=== PATIENT | female | born 1935 | race Caucasian/White ===

== ENCOUNTER 2020-06-11 13:54 | Observation (INO) | payer MEDICARE, MEDICAID ==
[~2020-06-11] VITALS: Ht 170.2 cm; Wt 67.2 kg
[~2020-06-11 13:54] MED LIST: ASCORBIC ACID500 MG ORAL; ATIVAN1 MG ORAL; AVAPRO75 MG ORAL; BACTRIM DS TAB1 EAC1 ORAL; BACTRIM-DS1 EA ORAL; CALCIUM500 M3 PO; DIOVAN80 MG ORAL; FERROUS SULFAT325 MG ORAL; LEVOTHYROXINE150 MCG ORAL; MULTIVITAMINS1 EA14 PO; NIFEDICAL XL60 MG ORAL; NIFEDIPINE XL30 M1 ORAL; NORVASC2.5 MG ORAL; SYNTHROID150 MCG ORAL; TYLENOL325 MG ORAL; VITAMIN D250000 UNI1 ORAL
[2020-06-11 14:03] VITALS: BP 145/90
[2020-06-11] MEDS ORDERED: LORazepam 1mg tab ORAL ONE (14:15)
[2020-06-11] MEDS ORDERED: Thiamine HCl 100 MG in D5W 55 ML IVPB ONE (14:15)
[2020-06-11 14:51] LABS: BASOPHILS % (AUTO) 0.7 % (0.0-2.0); EOSINOPHILS % (AUTO) 1.3 % (0.0-3.0); HEMATOCRIT 33.9 % (37.0-47.0); HEMOGLOBIN 11.7 G/DL (12.0-16.0); LYMPHOCYTES % (AUTO) 12.3 % (20.0-45.0); MEAN CORPUSCULAR VOLUME 83 FL (80-99); NEUTROPHILS % (AUTO) 79.7 % (45.0-75.0); PLATELET COUNT 299 K/UL (150-450); RED CELL DISTRIBUTION WIDTH 13.2 % (11.6-14.8); WHITE BLOOD COUNT 6.5 K/UL (4.8-10.8)
--- NOTE | 2020-06-11 15:24 | Emergency Room Report ---
History of Present Illness General Chief Complaint: General Complaint Source: Patient Present Illness HPI Patient is an 84-year-old female brought in by basic ambulance from assisted living. Patient had reportedly been off of her benzodiazepines for 2 days. She states she had run out of medications. She had reportedly been feeling more anxious and having some slight increased confusion. Denies any fever. Had been otherwise at her baseline mental status. Reports having some back pain from prior fracture. Denies any recent head trauma. Allergies: Coded Allergies: BACITRACIN (Verified Allergy, Unknown, 09/13/10) CODEINE (Verified Allergy, Unknown, 09/13/10) GRAMICIDIN D (Verified Allergy, Unknown, 09/13/10) NEOMYCIN (Verified Allergy, Unknown, 09/13/10) POLYMYXIN B (Verified Allergy, Unknown, 09/13/10) Uncoded Allergies: CODEINE PHOSPHATE (Allergy, Unknown, 06/11/20) COVID-19 Screening Contact w/high risk pt: No Experienced COVID-19 symptoms?: No COVID-19 Testing performed CORPORATE QUALITY MANAGER: No Patient History Past Medical History: see triage record Last Menstrual Period: na Reviewed Nursing Documentation: PMH: Agreed; PSxH: Agreed Nursing Documentation-PMH Past Medical History: No History, Except For Hx Cardiac Problems: Yes Hx Hypertension: Yes Hx Pacemaker: No - CHRONIC BACK PAIN Hx Cancer: Yes Hx Gastrointestinal Problems: No Hx Neurological Problems: No Hx Cerebrovascular Accident: Yes - 2009 Review of Systems All Other Systems: negative except mentioned in HPI Physical Exam Vital Signs Date Time Temp Pulse Resp B/P (MAP) Pulse Ox O2 Delivery O2 Flow Rate FiO2 06/11/20 13:53 97.9 100 19 188/98 (128) 97 Room Air Sp02 EP Interpretation: reviewed, normal General Appearance: normal inspection, alert, GCS 15, Chronically Ill Head: atraumatic ENT: normal ENT inspection, hearing grossly normal, normal voice Neck: normal inspection, full range of motion, supple, no bony tend Respiratory: normal inspection, lungs clear, normal breath sounds, no respiratory distress, no retraction, no wheezing Cardiovascular #1: regular rate, rhythm, no edema Gastrointestinal: normal inspection, normal bowel sounds, non tender, soft, no guarding, no hernia Genitourinary: no CVA tenderness Musculoskeletal: normal inspection, back normal, normal range of motion Neurologic: alert, motor strength/tone normal, tipple repairer III-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 Differential diagnosis include was not limited to benzodiazepine withdrawal, urinary tract infection, electrolyte abnormality among others. Because of complexity of patient's case laboratory tests and imaging studies were ordered. Patient was noted to be awake and alert. She does appear to be coherent. Does not appear to have any evidence of focal neurologic deficit. She was given oral Ativan. Patient refused CT imaging.Patient show some evidence of urinary infection. Dr. Burrows was contacted for inpatient management due to primary care physician. Labs Test 06/11/20 14:24 06/11/20 16:00 06/11/20 16:30 White Blood Count 6.5 K/UL (4.8-10.8) Red Blood Count 4.10 M/UL (4.20-5.40) Hemoglobin 11.7 G/DL (12.0-16.0) Hematocrit 33.9 % (37.0-47.0) Mean Corpuscular Volume 83 FL (80-99) Mean Corpuscular Hemoglobin 28.5 PG (27.0-31.0) Mean Corpuscular Hemoglobin Concent 34.5 G/DL (32.0-36.0) Red Cell Distribution Width 13.2 % (11.6-14.8) Platelet Count 299 K/UL (150-450) Mean Platelet Volume 5.5 FL (6.5-10.1) Neutrophils (%) (Auto) 79.7 % (45.0-75.0) Lymphocytes (%) (Auto) 12.3 % (20.0-45.0) Monocytes (%) (Auto) 6.0 % (1.0-10.0) Eosinophils (%) (Auto) 1.3 % (0.0-3.0) Basophils (%) (Auto) 0.7 % (0.0-2.0) Sodium Level 133 MMOL/L (136-145) Potassium Level 3.8 MMOL/L (3.5-5.1) Chloride Level 95 MMOL/L (98-107) Carbon Dioxide Level 24 MMOL/L (21-32) Anion Gap 14 mmol/L (5-15) Blood Urea Nitrogen 15 mg/dL (7-18) Creatinine 0.7 MG/DL (0.55-1.30) Estimat Glomerular Filtration Rate > 60 mL/min (>60) Glucose Level 101 MG/DL (74-106) Calcium Level 9.6 MG/DL (8.5-10.1) Total Bilirubin 0.6 MG/DL (0.2-1.0) Aspartate Amino Transf (AST/SGOT) 25 U/L (15-37) Alanine Aminotransferase (ALT/SGPT) 29 U/L (12-78) Alkaline Phosphatase 137 U/L (46-116) Total Protein 7.6 G/DL (6.4-8.2) Albumin 3.6 G/DL (3.4-5.0) Globulin 4.0 g/dL Albumin/Globulin Ratio 0.9 (1.0-2.7) Thyroid Stimulating Hormone (TSH) 0.684 uiU/mL (0.358-3.740) Urine Color Pale yellow Urine Appearance Cloudy Urine pH 6.5 (4.5-8.0) Urine Specific [place] 1.010 (1.005-1.035) Urine Protein 1+ (NEGATIVE) Urine Glucose (UA) Negative (NEGATIVE) Urine Ketones 2+ (NEGATIVE) Urine Blood 3+ (NEGATIVE) Urine Nitrite Positive (NEGATIVE) Urine Bilirubin Negative (NEGATIVE) Urine Urobilinogen Normal MG/DL (0.0-1.0) Urine Leukocyte Esterase 3+ (NEGATIVE) Urine RBC 30-40 /HPF (0 - 2) Urine WBC Tntc /HPF (0 - 2) Urine Squamous Epithelial Cells Few /LPF (NONE/OCC) Urine Bacteria Many /HPF (NONE) Last Vital Signs Date Time Temp Pulse Resp B/P (MAP) Pulse Ox O2 Delivery O2 Flow Rate FiO2 06/11/20 14:35 80 18 153/69 99 06/11/20 14:03 Room Air 06/11/20 13:53 97.9 Status: improved Disposition: ADMITTED INPATIENT Condition: Stable Referrals: NOT CHOSEN IPA/,REFERRING (PCP) Lambert Cardenas MD Jun 11, 2020 15:24
[2020-06-11 15:52] LABS: ANION GAP 14 mmol/L (5-15); BLOOD UREA NITROGEN 15 mg/dL (7-18); CALCIUM 9.6 MG/DL (8.5-10.1); CARBON DIOXIDE 24 MMOL/L (21-32); CHLORIDE 95 MMOL/L (98-107); CREATININE 0.7 MG/DL (0.55-1.30); POTASSIUM 3.8 MMOL/L (3.5-5.1); SODIUM 133 MMOL/L (136-145)
[2020-06-11 16:05] VITALS: BP 145/90
[2020-06-11 16:06] LABS: ALANINE AMINOTRANSFERASE 29 U/L (12-78); ALBUMIN 3.6 G/DL (3.4-5.0); ALBUMIN/GLOBULIN RATIO 0.9 (1.0-2.7); ALKALINE PHOSPHATASE 137 U/L (46-116); ASPARTATE AMINO TRANSFERASE 25 U/L (15-37); BILIRUBIN,TOTAL 0.6 MG/DL (0.2-1.0)
[2020-06-11 16:06] LABS: APPEARANCE,URINE CLOUDY; BILIRUBIN, URINE NEGATIVE (NEGATIVE); COLOR,URINE PALE YELLOW; GLUCOSE, URINE (UA) NEGATIVE (NEGATIVE); KETONES,URINE 2+ (NEGATIVE); LEUKOCYTE ESTERASE ,URINE 3+ (NEGATIVE); NITRITE,URINE POSITIVE (NEGATIVE); PH,URINE 6.5 (4.5-8.0); PROTEIN,URINE 1+ (NEGATIVE); UROBILINOGEN,URINE NORMAL MG/DL (0.0-1.0)
[2020-06-11] MEDS ORDERED: cefTRIAXone 1 GM in NS 55 ML IVPB ONE (16:30)
[2020-06-11] MEDS ORDERED: VITAMIN B-121000 MC2 PO (17:10)
[2020-06-11] MEDS ORDERED: ATORVASTATIN CA40 MG ORAL (17:10)
[2020-06-11] MEDS ORDERED: VITAMIN D32400 UNIT/ PO (17:10)
[2020-06-11] MEDS ORDERED: THERA M PLUS T1 EAC2 PO (17:10)
[2020-06-11] MEDS ORDERED: LEVOTHYROXINE125 MCG ORAL (17:10)
[2020-06-11] MEDS ORDERED: OYSCO 500+D TA1 EAC1 PO (17:10)
[2020-06-11] MEDS ORDERED: ASPIRIN EC81 MG ORAL (17:10)
[2020-06-11] MEDS ORDERED: LISINOPRIL5 MG ORAL (17:10)
[2020-06-11] MEDS ORDERED: PLAVIX75 MG ORAL (17:10)
[2020-06-11] MEDS ORDERED: Albuterol/Ipratropium 3ml neb HHN PRN (18:30)
--- NOTE | 2020-06-11 18:57 | History and Physical ---
History of Present Illness General Date patient seen: Jun 11, 2020 Reason for Hospitalization: General Complaint Present Illness HPI Mrs. Connolly is a 84F with PMH of anxiety, HTN, UTI, Vitamin D deficiency, Hypothymism, and HLD who was BIBA from her assisted living for encephalopathy. Patient is a chronic user of ativan for 10+ years; uses 1 mg BID for anxiety and she has been off her medication for the last 48+ hours. Per ED physician, she became altered and started hallucinating at her [facility] thus prompting their call for 911. Patient denies previous hx of hallucinations in the past. She denies fevers, cough, sob, chest pain, abdominal pain, nausea, vomiting or constipation. She sometimes has dysuria and increased urinary frequency. She ambulates mainly via wheelchair and using a walker. No recent illnesses, sick contacts or travels. No other changes in medications. Rest of 10 point ROS negative aside from what stated above. In the ED, patient was hemodynamically stable and able to answer all questions appropriately. She was given 1mg of Ativan. She is AOx4. Initial work up is positive for UTI. She refused a head CT scan. She will be admitted for acute encephalopathy likely from medication withdraw and UTI. PMH: anxiety, HTN, HLD, Hypothyroidsm, UTI, Vit D Deficiency Sx: Right shoulder surgery Fx: denies any cardiac, pulmonary, malignancy Soc: denies smoking, alcohol or recreational drug use Allergies: Coded Allergies: BACITRACIN (Verified Allergy, Unknown, 09/13/10) CODEINE (Verified Allergy, Unknown, 09/13/10) GRAMICIDIN D (Verified Allergy, Unknown, 09/13/10) NEOMYCIN (Verified Allergy, Unknown, 09/13/10) POLYMYXIN B (Verified Allergy, Unknown, 09/13/10) Uncoded Allergies: CODEINE PHOSPHATE (Allergy, Unknown, 06/11/20) COVID-19 Screening Contact w/high risk pt: No Experienced COVID-19 symptoms?: No Medication History Scheduled Amlodipine Besylate (Norvasc), Unknown Dose ORAL DAILY, (Reported) Ascorbic Acid* (Ascorbic Acid*), 500 MG ORAL DAILY, (Reported) Aspirin Ec* (Aspirin Ec*), 81 MG ORAL DAILY, (Reported) Atorvastatin Calcium* (Atorvastatin Calcium*), 80 MG ORAL BEDTIME, (Reported) Calcium Carbonate (Calcium), 500 MG PO DAILY, (Reported) Calcium Carbonate/Vitamin D3 ([place] 500+D Tablet), 1 EACH PO DAILY, (Reported) Clopidogrel Bisulfate* (Plavix*), 75 MG ORAL DAILY, (Reported) Cyanocobalamin (Vitamin B-12) (Vitamin B-12), 1,000 MCG PO DAILY, (Reported) Ergocalciferol (Vitamin D2)* (Vitamin D*), 50,000 UNIT ORAL DAILY, (Reported) Ferrous Sulfate* (Ferrous Sulfate*), 325 MG ORAL DAILY, (Reported) Ferrous Sulfate* (Ferrous Sulfate*), 325 MG ORAL DAILY, (Reported) Ferrous Sulfate* (Ferrous Sulfate*), 325 MG ORAL DAILY, (Reported) Ferrous Sulfate* (Ferrous Sulfate*), 325 MG ORAL DAILY, (Reported) Ferrous Sulfate* (Ferrous Sulfate*), 325 MG ORAL DAILY, (Reported) Irbesartan* (Avapro*), 75 MG ORAL DAILY, (Reported) Levothyroxine Sodium* (Levothyroxine Sodium*), 150 MCG ORAL ACBREAKFAST, (Reported) Levothyroxine Sodium* (Synthroid*), 150 MCG ORAL DAILY, (Reported) Levothyroxine Sodium* (Levothyroxine Sodium*), 125 MCG ORAL DAILY, (Reported) Lisinopril (Lisinopril*), 15 MG ORAL DAILY, (Reported) Lorazepam* (Ativan*), 1 MG ORAL BID, (Reported) Multivitamin (Multivitamins), 1 EACH PO DAILY, (Reported) Multivits,Ca,Minerals/Iron/FA (Thera M Plus Tablet), 1 EACH PO DAILY, (Reported) Nifedipine Xl* (Procardia Xl*), 60 MG ORAL DAILY, (Reported) Nifedipine Xl* (Nifedipine Xl*), 60 MG ORAL DAILY, (Reported) Trimethoprim/Sulfamethoxazole (Bactrim Ds Tablet), 1 TAB ORAL Q12HR, (Reported) Trimethoprim/Sulfamethoxazole 160/800* (Bactrim Ds Tablet*), 1 TAB ORAL Q12H Valsartan (Diovan), 80 MG ORAL DAILY, (Reported) Scheduled PRN Acetaminophen (Tylenol), 650 MG ORAL Q4HR PRN for Mild Pain/Temp > 100.5, (Reported) Miscellaneous Medications Cholecalciferol (Vitamin D3) (Vitamin D3), 2,000 UNIT PO, (Reported) Patient History Healthcare decision maker Resuscitation status Advanced Directive on File Review of Systems Constitutional: Denies: no symptoms, see HPI, chills, sweats, fever, malaise, weakness, other Eye: Denies: no symptoms, see HPI, eye pain, blurred vision, tearing, double v ision, nose pain, nose congestion, acuity changes, discharge, other ENT: Denies: no symptoms, see HPI, ear pain, ear discharge, nose pain, nose congestion, throat pain, throat swelling, mouth pain, hearing loss, nasal discharge, other Respiratory: Denies: no symptoms, see HPI, cough, orthopnea, shortness of breath, stridor, wheezing, SHAH, sputum, other Cardiovascular: Denies: no symptoms, see HPI, chest pain, edema, palpitations, syncope, PND, other Gastrointestinal: Denies: no symptoms, see HPI, abdominal pain, constipation, diarrhea, nausea, vomiting, melena, hematemesis, other Musculoskeletal: Denies: no symptoms, see HPI, back pain, gout, joint pain, joint swelling, muscle pain, muscle stiffness, other Skin: Denies: no symptoms, see HPI, rash, change in color, change in hair/nails, dryness, lesions, other Psychiatric: Reports: no symptoms, see HPI, prior hx, anxiety, depressed feelings, emotional problems, SI, HI, hallucinations, other Neurological: Denies: no symptoms, see HPI, headache, numbness, paresthesia, seizure, tingling, tremors, focal weakness, syncope, dizziness, other Hematologic/Lymphatic: Denies: no symptoms, see HPI, anemia, blood clots, easy bleeding, easy bruising, swollen glands, diathesis, other All Other Systems: negative except mentioned in HPI Physical Exam General Appearance: no apparent distress, alert, alert oriented x3 HEENT: atraumatic, PERRL Neck: non-tender, supple Respiratory/Chest: lungs clear, normal breath sounds, no respiratory distress Cardiovascular/Chest: normal rate, regular rhythm, no JVD Abdomen: normal bowel sounds, non tender, soft Extremities: non-tender, normal inspection, no edema 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, oriented x 3 Last 24 Hour Vital Signs Date Time Temp Pulse Resp B/P (MAP) Pulse Ox O2 Delivery O2 Flow Rate FiO2 06/11/20 16:05 98.0 72 16 145/90 99 Room Air 06/11/20 15:05 76 20 145/79 96 06/11/20 14:35 80 18 153/69 99 06/11/20 14:03 100 19 Room Air 06/11/20 14:03 98.3 78 14 145/90 99 Room Air 06/11/20 13:53 97.9 100 19 188/98 (128) 97 Room Air Laboratory Tests Test 06/11/20 14:24 06/11/20 16:00 06/11/20 16:30 White Blood Count 6.5 K/UL (4.8-10.8) Red Blood Count 4.10 M/UL (4.20-5.40) L Hemoglobin 11.7 G/DL (12.0-16.0) L Hematocrit 33.9 % (37.0-47.0) L Mean Corpuscular Volume 83 FL (80-99) Mean Corpuscular Hemoglobin 28.5 PG (27.0-31.0) Mean Corpuscular Hemoglobin Concent 34.5 G/DL (32.0-36.0) Red Cell Distribution Width 13.2 % (11.6-14.8) Platelet Count 299 K/UL (150-450) Mean Platelet Volume 5.5 FL (6.5-10.1) L Neutrophils (%) (Auto) 79.7 % (45.0-75.0) H Lymphocytes (%) (Auto) 12.3 % (20.0-45.0) L Monocytes (%) (Auto) 6.0 % (1.0-10.0) Eosinophils (%) (Auto) 1.3 % (0.0-3.0) Basophils (%) (Auto) 0.7 % (0.0-2.0) Sodium Level 133 MMOL/L (136-145) L Potassium Level 3.8 MMOL/L (3.5-5.1) Chloride Level 95 MMOL/L (98-107) L Carbon Dioxide Level 24 MMOL/L (21-32) Anion Gap 14 mmol/L (5-15) Blood Urea Nitrogen 15 mg/dL (7-18) Creatinine 0.7 MG/DL (0.55-1.30) Estimat Glomerular Filtration Rate > 60 mL/min (>60) Glucose Level 101 MG/DL (74-106) Calcium Level 9.6 MG/DL (8.5-10.1) Total Bilirubin 0.6 MG/DL (0.2-1.0) Aspartate Amino Transf (AST/SGOT) 25 U/L (15-37) Alanine Aminotransferase (ALT/SGPT) 29 U/L (12-78) Alkaline Phosphatase 137 U/L (46-116) H Total Protein 7.6 G/DL (6.4-8.2) Albumin 3.6 G/DL (3.4-5.0) Globulin 4.0 g/dL Albumin/Globulin Ratio 0.9 (1.0-2.7) L Thyroid Stimulating Hormone (TSH) 0.684 uiU/mL (0.358-3.740) Urine Color Pale yellow Urine Appearance Cloudy Urine pH 6.5 (4.5-8.0) Urine Specific [place] 1.010 (1.005-1.035) Urine Protein 1+ (NEGATIVE) H Urine Glucose (UA) Negative (NEGATIVE) Urine Ketones 2+ (NEGATIVE) H Urine Blood 3+ (NEGATIVE) H Urine Nitrite Positive (NEGATIVE) H Urine Bilirubin Negative (NEGATIVE) Urine Urobilinogen Normal MG/DL (0.0-1.0) Urine Leukocyte Esterase 3+ (NEGATIVE) H Urine RBC 30-40 /HPF (0 - 2) H Urine WBC Tntc /HPF (0 - 2) H Urine Squamous Epithelial Cells Few /LPF (NONE/OCC) Urine Bacteria Many /HPF (NONE) H Lactic Acid Level 0.60 mmol/L (0.4-2.0) Height (Feet): 5 Height (Inches): 7.00 Weight (Pounds): 150 Medications Current Medications Medications (Trade) Dose Ordered Sig/Katie Route PRN Reason Start Time Stop Time Status Last Admin Dose Admin Acetaminophen (Tylenol) 650 mg Q4H PRN ORAL Temp >100.5 06/11/20 18:30 07/11/20 18:29 Albuterol/ Ipratropium (Albuterol/ Ipratropium) 3 ml Q6H PRN HHN Shortness of Breath 06/11/20 18:30 06/16/20 18:29 Amlodipine Besylate (Norvasc) 2.5 mg DAILY ORAL 06/12/20 09:00 07/12/20 08:59 UNV Aspirin (Ecotrin) 81 mg DAILY ORAL 06/12/20 09:00 07/27/20 08:59 UNV Atorvastatin Calcium (Lipitor) 80 mg DAILY ORAL 06/12/20 09:00 09/10/20 08:59 UNV Bisacodyl (Dulcolax) 10 mg HSPRN PRN RECTAL Constipation 06/11/20 21:00 09/09/20 20:59 Ceftriaxone Sodium (Rocephin) 1 gm DAILY IM 06/12/20 09:00 06/19/20 08:59 UNV Dextrose (Dextrose 50%) 25 ml Q30M PRN IV Hypoglycemia 06/11/20 18:30 09/09/20 18:29 Dextrose (Dextrose 50%) 50 ml Q30M PRN IV Hypoglycemia 06/11/20 18:30 09/09/20 18:29 Enoxaparin Sodium (Lovenox) 40 mg Q24H SUBQ 06/11/20 19:30 09/09/20 19:29 UNV Levothyroxine Sodium (Synthroid) 125 mcg DAILY@0630 ORAL 06/12/20 06:30 07/12/20 06:29 UNV Lorazepam (Ativan) 1 mg BID ORAL 06/12/20 09:00 06/19/20 08:59 UNV Nifedipine (Procardia XL) 60 mg DAILY ORAL 06/12/20 09:00 07/12/20 08:59 UNV Ondansetron HCl (Zofran) 4 mg Q6H PRN IVP Nausea & Vomiting 06/11/20 18:30 07/11/20 18:29 Sodium Chloride 1,000 ml @ 100 mls/hr Q10H IVLG 06/11/20 19:30 07/11/20 19:29 UNV Assessment/Plan Assessment/Plan: Mrs. Connolly is a 84F with PMH of anxiety being admitted for hallucinations and AMS. # Acute Encephlaopathy w/ visual hallucinations [facility] 2/2 Benzo withdrawal, UTI # UTI # Mild Hypovolemic Hyponatremia # Benzodiazepine withdrawal # Hx of Anxiety # Hx of Hypothyroidsm # HX of HTN P: - hemodynamically stable - seizure precautions from benzo withdrawal - continue 1 mg BID Ativan - she does not want to try and titrate off her benzo medication despite my lengthy discussion about the dangers of being addicted to this med and using it for the elderly - IVF - continue Rocephin for UTI - restart home levothyroxine, nifedipine, atorvastatin - CM GI: none Fluids: NS 100 cc Diet: Regular DVT: Lovenox 40 mg subq CODE: Full Dispo: pending encephalopathy resolution, d/c back to assisted living. Kranthi Florez D.O Jun 11, 2020 18:57
[2020-06-11] MEDS ORDERED: Enalaprilat 2.5mg/2ml Inj IV PRN (19:45)
--- NOTE | 2020-06-11 21:09 | General Progress Note ---
Advance Care Planning Advance Care Planning Advance Care Planning [facility] An independent Hospitalist group, where every patient is our [facility] Internal Medicine Hospitalist Advanced Care Planning Note Please contact us at Date of Discussion: A [id number] discussion with the patient regarding the patient's advanced care planning took place during this hospitalization on the above date. The discussion included the explanation and discussion of advance directives and associated forms/documents, as well as the patient's current code status. We also discussed at length the patient's medical conditions (both acute and chroni c), general prognosis, treatment options, and goals of care. The following summarizes the discussion: Advance Care Planning/Goals of Care: - Will attempt to fill out an AD and/or POLST with the patient prior to discharge, if not already completed - Continue current evaluation and management of any acute and chronic medical issues - Will continue to support the patient/family - Will continue to discuss both short- and long-term goals of care DPOA-HC/Surrogate Decision Maker: None currently appointed Code Status: Limited, no chest compressions, medications ok Advanced Care Planning Forms/Documents Completed: Deferred until later encounter/visit A total of 25 minutes was spent on this discussion, including counseling, answering questions, and completing, if any, pertinent advanced care planning forms/documents. Time of note may not reflect time of encounter. Kranthi Florez D.O Jun 11, 2020 21:09
[2020-06-11] MEDS: Enoxaparin 40mg Inj SUBQ SCH (23:05)
[2020-06-11 23:16] VITALS: BP 115/81
[2020-06-12 04:00] VITALS: BP 119/86
[2020-06-12] MEDS: Levothyroxine 125mcg tab ORAL SCH (05:55)
[2020-06-12 08:00] VITALS: BP 130/76
[2020-06-12 08:20] LABS: BASOPHILS % (AUTO) 2.1 % (0.0-2.0); EOSINOPHILS % (AUTO) 2.3 % (0.0-3.0); HEMATOCRIT 34.4 % (37.0-47.0); HEMOGLOBIN 11.7 G/DL (12.0-16.0); LYMPHOCYTES % (AUTO) 11.6 % (20.0-45.0); MEAN CORPUSCULAR VOLUME 84 FL (80-99); MONOCYTES % (AUTO) 8.3 % (1.0-10.0); NEUTROPHILS % (AUTO) 75.7 % (45.0-75.0); PLATELET COUNT 302 K/UL (150-450); RED BLOOD COUNT 4.12 M/UL (4.20-5.40); RED CELL DISTRIBUTION WIDTH 13.3 % (11.6-14.8); WHITE BLOOD COUNT 7.7 K/UL (4.8-10.8)
[2020-06-12 08:39] LABS: ANION GAP 8 mmol/L (5-15); BLOOD UREA NITROGEN 10 mg/dL (7-18); CARBON DIOXIDE 26 MMOL/L (21-32); CHLORIDE 99 MMOL/L (98-107); CREATININE 0.6 MG/DL (0.55-1.30); PHOSPHORUS 3.3 MG/DL (2.5-4.9); POTASSIUM 3.4 MMOL/L (3.5-5.1); SODIUM 133 MMOL/L (136-145)
[2020-06-12] MEDS: cefTRIAXone 1gm/NS 55ml IVPB SCH ×2 (08:57)
[2020-06-12] MEDS: Aspirin EC 81mg tab ORAL SCH (08:58)
[2020-06-12] MEDS: LORazepam 1mg tab ORAL SCH ×2 (08:58→17:39)
[2020-06-12 12:00] VITALS: BP 123/73
--- NOTE | 2020-06-12 15:24 | General Progress Note ---
Subjective ROS Limited/Unobtainable: No Constitutional: Denies: no symptoms, chills, diaphoresis, fever, malaise, weakness, other HEENT: Denies: no symptoms, eye pain, blurred vision, tearing, double vision, ear pain, ear discharge, nose pain, nose congestion, throat pain, throat swelling, mouth pain, mouth swelling, other Cardiovascular: Denies: no symptoms, chest pain, edema, irregular heart rate, lightheadedness, palpitations, syncope, other Respiratory: Denies: no symptoms, cough, orthopnea, shortness of breath, SOB with excertion, SOB at rest, sputum, stridor, wheezing, other Gastrointestinal/Abdominal: Denies: no symptoms, abdomen distended, abdominal pain, black stools, tarry stools, blood in stool, constipated, diarrhea, difficulty swallowing, nausea, poor appetite, poor fluid intake, rectal bleeding, vomiting, other Genitourinary: Reports: no symptoms, burning, discharge, frequency, flank pain, hematuria, incontinence, pain, urgency, other Neurologic/Psychiatric: Denies: no symptoms, anxiety, depressed, emotional problems, headache, numbness, paresthesia, pre-existing deficit, seizure, tingling, tremors, weakness, other Endocrine: Denies: no symptoms, excessive sweating, flushing, intolerance to cold, intolerance to heat, increased hunger, increased thirst, increased urine, unexplained weight gain, unexplained weight loss, other Allergies: Coded Allergies: BACITRACIN (Verified Allergy, Unknown, 09/13/10) CODEINE (Verified Allergy, Unknown, 09/13/10) GRAMICIDIN D (Verified Allergy, Unknown, 09/13/10) NEOMYCIN (Verified Allergy, Unknown, 09/13/10) POLYMYXIN B (Verified Allergy, Unknown, 09/13/10) Uncoded Allergies: CODEINE PHOSPHATE (Allergy, Unknown, 06/11/20) Subjective no acute events overnight. Patient feels more relaxed today after getting her benzo. She notes persistent dysuria. Denies fevers, chills. Overall feels better. Objective Last 24 Hour Vital Signs Date Time Temp Pulse Resp B/P (MAP) Pulse Ox O2 Delivery O2 Flow Rate FiO2 06/12/20 12:00 97.3 79 20 123/73 (90) 97 06/12/20 09:28 77 20 130/76 97 06/12/20 09:00 Room Air 06/12/20 08:58 77 20 130/76 97 06/12/20 08:58 77 130/76 06/12/20 08:00 97.3 77 20 130/76 (94) 97 06/12/20 04:00 97.8 75 20 119/86 (97) 96 06/11/20 23:16 97.2 78 20 115/81 (92) 97 06/11/20 23:13 Room Air 06/11/20 20:50 98.0 78 18 144/63 99 Room Air 06/11/20 16:05 98.0 72 16 145/90 99 Room Air Intake and Output 06/11/20 06/12/20 19:00 07:00 Intake Total 111 ml 2000 ml Balance 111 ml 2000 ml Intake Oral 300 ml IV Total 111 ml 1700 ml # Voids 1 2 Laboratory Tests 06/11/20 16:00: Urine Color Pale yellow, Urine Appearance Cloudy, Urine pH 6.5, Urine Specific [place] 1.010, Urine Protein 1+H, Urine Glucose (UA) Negative, Urine Ketones 2+H , Urine Blood 3+H, Urine Nitrite PositiveH, Urine Bilirubin Negative, Urine Urobilinogen Normal, Urine Leukocyte Esterase 3+H, Urine RBC 30-40H, Urine WBC TntcH, Urine Squamous Epithelial Cells Few, Urine Bacteria ManyH 06/11/20 16:30: Lactic Acid Level 0.60 06/12/20 07:40: White Blood Count 7.7, Red Blood Count 4.12L, Hemoglobin 11.7L, Hematocrit 34.4L , Mean Corpuscular Volume 84, Mean Corpuscular Hemoglobin 28.4, Mean Corpuscular Hemoglobin Concent 34.0, Red Cell Distribution Width 13.3, Platelet Count 302, Mean Platelet Volume 5.4L, Neutrophils (%) (Auto) 75.7H, Lymphocytes (%) (Auto) 11.6L, Monocytes (%) (Auto) 8.3, Eosinophils (%) (Auto) 2.3, Basophils (%) (Auto) 2.1H, Sodium Level 133L, Potassium Level 3.4L, Chloride Level 99, Carbon Dioxide Level 26, Anion Gap 8, Blood Urea Nitrogen 10, Creatinine 0.6, Estimat Glomerular Filtration Rate > 60, Glucose Level 98, Calcium Level 9.0, Phosphorus Level 3.3, Magnesium Level 1.8, Vitamin B12 Level 428, Vitamin D 25-Hydroxy [Pending], 25-Hydroxy Vitamin D2 [Pending], 25-Hydroxy Vitamin D3 [Pending] Height (Feet): 5 Height (Inches): 7.00 Weight (Pounds): 138 General Appearance: no apparent distress, alert EENT: normal ENT inspection Neck: normal alignment, normal inspection Cardiovascular: normal rate, regular rhythm, no JVD Respiratory/Chest: lungs clear, normal breath sounds, no respiratory distress Abdomen: normal bowel sounds, non tender, soft Extremities: normal range of motion, non-tender Edema: no edema noted Arm (L), no edema noted Arm (R), no edema noted Leg (L), no edema noted Leg (R), no edema noted Pedal (L), no edema noted Pedal (R), no edema noted 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 Connolly is a 84F with PMH of anxiety being admitted for hallucinations and AMS. # Acute Encephalopathy w/ visual hallucinations [facility] 2/2 Benzo withdrawal, UTI - resolved # UTI, recurrent # Mild Hypovolemic Hyponatremia # Benzodiazepine withdrawal # Hx of Anxiety # Hx of Hypothyroidism # HX of HTN P: - hemodynamically stable - seizure precautions from benzo withdrawal - continue 1 mg BID Ativan - she does not want to try and titrate off her benzo medication despite my lengthy discussion about the dangers of being addicted to this med and using it for the elderly - continue Rocephin for UTI - f/u UC and treat to sensitivities given recurrent hx of UTI per patient - restart home levothyroxine, nifedipine, atorvastatin - CM GI: none Fluids: none Diet: Regular DVT: Lovenox 40 mg subq CODE: Full Dispo: discharge tomorrow pending UC and improvement of mental status Time spent on this encounter was approx. 35 min with 25 minutes dedicated to coordination care and discussion with RN. Time of note may not reflect time patient was seen. Kranthi Florez D.O Jun 12, 2020 15:23
[2020-06-12 16:00] VITALS: BP 106/70
[2020-06-12 20:00] VITALS: BP 116/63
[2020-06-12] MEDS: Enoxaparin 40mg Inj SUBQ SCH (20:14)
[2020-06-13] VITALS: BP 112/67
[2020-06-13 04:00] VITALS: BP 107/57
[2020-06-13] MEDS: Levothyroxine 125mcg tab ORAL SCH (05:45)
[2020-06-13 06:24] LABS: BASOPHILS % (AUTO) 0.8 % (0.0-2.0); EOSINOPHILS % (AUTO) 2.8 % (0.0-3.0); HEMATOCRIT 31.7 % (37.0-47.0); LYMPHOCYTES % (AUTO) 16.6 % (20.0-45.0); MEAN CORPUSCULAR VOLUME 83 FL (80-99); MONOCYTES % (AUTO) 8.2 % (1.0-10.0); NEUTROPHILS % (AUTO) 71.6 % (45.0-75.0); PLATELET COUNT 285 K/UL (150-450); RED BLOOD COUNT 3.83 M/UL (4.20-5.40); RED CELL DISTRIBUTION WIDTH 13.1 % (11.6-14.8); WHITE BLOOD COUNT 7.6 K/UL (4.8-10.8)
[2020-06-13 07:07] LABS: BLOOD UREA NITROGEN 10 mg/dL (7-18); CALCIUM 8.5 MG/DL (8.5-10.1); CHLORIDE 100 MMOL/L (98-107); CREATININE 0.6 MG/DL (0.55-1.30); PHOSPHORUS 3.3 MG/DL (2.5-4.9); POTASSIUM 3.6 MMOL/L (3.5-5.1); SODIUM 133 MMOL/L (136-145)
[2020-06-13 07:15] LABS: CARBON DIOXIDE 24 MMOL/L (21-32)
[2020-06-13 08:00] VITALS: BP 145/88
[2020-06-13] MEDS: LORazepam 1mg tab ORAL SCH (08:44)
[2020-06-13] MEDS: Aspirin EC 81mg tab ORAL SCH (08:45)
[2020-06-13] MEDS: cefTRIAXone 1gm/NS 55ml IVPB SCH ×2 (08:45)
[2020-06-13 12:00] VITALS: BP 150/79
[2020-06-13] MEDS ORDERED: CEFDINIR300 MG PO ×2 (12:37→15:14)
[2020-06-13 16:00] VITALS: BP 114/62
--- NOTE | 2020-06-13 19:17 | Discharge Summary ---
Discharge Summary Hospital Course Date of Admission Jun 11, 2020 at 16:37 Date of Discharge Jun 13, 2020 at 17:52 Admitting Diagnosis hallucinations, benzodiazepine withdrawal HPI Pham Connolly is a 84 year old female who was admitted on Jun 11, 2020 at 16:37 for Hallucinations,Benzodiazepine Withdrawal Hospital Course Mrs. Connolly is a 84F with PMH of anxiety being admitted for hallucinations and AMS. #Acute Encephalopathy - resolved #Acute Cystitis Patient has been consistently taking Ativan 1mg BID, and on admission there was concern for possible benzo withdrawal vs. acute cystitis. UC is consistent with GNR. Patient was treated with Rocephen and transitioned to Cefdinir to complete for a total of 7d treatment. plan to f/u with sensitivities of UC. Additionally there was a lengthy discussion with patient to discontinue and taper Benzodiazepines. Patient seems unwilling at this time, but will need further taper as outpatient. #Hx HTN - Continue Nifedpine #Hx of HLD - Continue atorvastatin Spent >35min with counseling, care coordination and discussion of plan with CM and Nursing staff Time of note does not reflect time of encounter. Discharge Discharge Vital Signs Last Vital Signs Date Time Temp Pulse Resp B/P (MAP) Pulse Ox O2 Delivery O2 Flow Rate FiO2 06/13/20 16:00 97.2 67 19 114/62 (79) 95 06/13/20 09:00 Room Air Discharge Disposition Patient was discharged to Tiffany Ruiz M.D. Jun 13, 2020 19:17
[2020-06-13] MEDS ORDERED: Atorvastatin 80mg tab ORAL SCH (21:00)
[2020-06-14] MEDS ORDERED: Atorvastatin 80mg tab ORAL SCH (21:00)
== END 2020-06-13 17:52 | disposition home or self-care (01) ==
LOC: EDBD 13:54 → EMR 14:00 → INTOOBSV 16:37 → 4E 16:37 → EDBEDREQ 20:13
DX: G93.40 Encephalopathy, unspecified (principal); N30.00 Acute cystitis without hematuria; E78.5 Hyperlipidemia, unspecified; I10 Essential (primary) hypertension; M54.9 Dorsalgia, unspecified; F41.9 Anxiety disorder, unspecified; R44.0 Auditory hallucinations; E87.1 Hypo-osmolality and hyponatremia; F13.239 Sedative, hypnotic or anxiolytic dependence with withdrawal, unspecified; E03.9 Hypothyroidism, unspecified; Z88.6 Allergy status to analgesic agent; Z88.8 Allergy status to other drugs, medicaments and biological substances; Z85.9 Personal history of malignant neoplasm, unspecified; Z87.440 Personal history of urinary (tract) infections; Z79.82 Long term (current) use of aspirin; Z79.899 Other long term (current) drug therapy; Z86.73 Personal history of transient ischemic attack (TIA), and cerebral infarction without residual deficits
CPT/HCPCS: 36415 ×3; 80048 ×2; 80053; 81003; 82306; 82607; 83605; 83735 ×2; 84100 ×2; 84443; 85025 ×3; 87040; 87081 ×3; 87086; 87181; 96360; 96361; 96365; 96367; 96372 ×2; 99284; G0378 ×2; J0696 ×3; J1650 ×2; J7030; J8499

== ENCOUNTER 2020-07-11 03:09 | Emergency (ER) | payer MEDICARE, MEDICAID ==
[~2020-07-11] VITALS: Ht 172.7 cm; Wt 72.6 kg
[~2020-07-11 03:09] MED LIST changes: +ASPIRIN EC81 MG ORAL; +ATORVASTATIN CA40 MG ORAL; +CEFDINIR300 MG PO; +LEVOTHYROXINE125 MCG ORAL; +LISINOPRIL5 MG ORAL; +OYSCO 500+D TA1 EAC1 PO; +PLAVIX75 MG ORAL; +THERA M PLUS T1 EAC2 PO; +VITAMIN B-121000 MC2 PO; +VITAMIN D32400 UNIT/ PO
--- NOTE | 2020-07-11 03:15 | NUR ---
ED Nurse Note: Pt brought in by ambulance from [facility] c/o glf around 2 hrs ago. Pt stated she fell out of bed; injuring her RT ankle. Pt denies head trauma. Pt is baseline ambulatory. changed into gown. patient ao4 with no acute distress. all safey measures met; bed locked at lowest position; siderails raised; call light within reach.
--- NOTE | 2020-07-11 03:19 | Emergency Room Report ---
History of Present Illness General Chief Complaint: Multiple Trauma/Fall Source: Patient, Medical Record, EMS Present Illness HPI This is an 84-year-old female who is wheelchair-bound in assisted living. She presents with a fall with bilateral foot pain. She states she was transferring from her bed to wheelchair and she fell. She said that her foot got caught underneath her. She complaining of pain to both feet. Denies any head injury. Denies any other trauma. Pain is 7 out of 10. Worse with movement. Better with rest. No other injury. Allergies: Coded Allergies: BACITRACIN (Verified Allergy, Unknown, 09/13/10) CODEINE (Verified Allergy, Unknown, 09/13/10) GRAMICIDIN D (Verified Allergy, Unknown, 09/13/10) NEOMYCIN (Verified Allergy, Unknown, 09/13/10) POLYMYXIN B (Verified Allergy, Unknown, 09/13/10) Uncoded Allergies: CODEINE PHOSPHATE (Allergy, Unknown, 06/11/20) COVID-19 Screening Contact w/high risk pt: No Experienced COVID-19 symptoms?: No COVID-19 Testing performed CANTEEN ATTENDANT: No Patient History Past Medical History: see triage record, old chart reviewed, HTN, CVA/TIA Past Surgical History: other Pertinent Family History: none Social History: Denies: smoking Now: No Immunizations: other Reviewed Nursing Documentation: PMH: Agreed; PSxH: Agreed Nursing Documentation-PMH Hx Cardiac Problems: Yes Hx Hypertension: Yes Hx Pacemaker: No - CHRONIC BACK PAIN Hx Cancer: Yes Hx Gastrointestinal Problems: No Hx Neurological Problems: Yes Hx Cerebrovascular Accident: Yes - 2009 Review of Systems Eye: Denies: eye pain, blurred vision ENT: Denies: ear pain, nose congestion, throat swelling Respiratory: Denies: cough, shortness of breath Cardiovascular: Denies: chest pain, palpitations Gastrointestinal: Denies: abdominal pain, diarrhea, nausea, vomiting Musculoskeletal: Reports: joint pain; Denies: back pain Skin: Denies: rash Neurological: Denies: headache, numbness Endocrine: Denies: increased thirst, increased urine Hematologic/Lymphatic: Denies: easy bruising All Other Systems: negative except mentioned in HPI Physical Exam Vital Signs Date Time Temp Pulse Resp B/P (MAP) Pulse Ox O2 Delivery O2 Flow Rate FiO2 07/11/20 03:10 98.8 94 18 168/82 (110) 93 Room Air Vitals with high blood pressure Sp02 EP Interpretation: reviewed, normal General Appearance: well appearing, no apparent distress, alert Head: normocephalic, atraumatic Eyes: bilateral eye PERRL, bilateral eye EOMI ENT: hearing grossly normal, normal pharynx Neck: full range of motion, supple, no meningismus Respiratory: chest non-tender, lungs clear, normal breath sounds Cardiovascular #1: regular rate, rhythm, no murmur Gastrointestinal: normal bowel sounds, non tender, no mass, no organomegaly, no bruit, non-distended Musculoskeletal: back normal, normal range of motion, other - Bilateral feet with no obvious deformity. Patient said is painful but when I moved that she did not have any pain. Sensation normal. Pulses normal. Psychiatric: anxious Medical Decision Making Diagnostic Impression: Primary Impression: Fall Qualified Codes: W19.XXXA - Unspecified fall, initial encounter Additional Impression: Foot pain, bilateral ER Course Patient with bilateral foot pain from trauma. No evidence of any fracture or dislocation. Patient is nonambulatory and wheelchair-bound. Will discharge back to halfway. Other X-Ray Diagnostic Results Other X-Ray Diagnostic Results #1: X-Ray ordered: Left foot x-rays # of Views/Limited Vs Complete: 3 View Indication: Pain EP Interpretation: Yes Interpretation: no dislocation, no soft tissue swelling, no fractures, other - Osteoporosis Impression: Other - Osteoporosis Electronically Signed by: Torrey Lane MD Other X-Ray Diagnostic Results #2: X-Ray ordered: Right foot x-rays # of Views/Limited Vs Complete: 3 View Indication: Pain EP Interpretation: Yes Interpretation: no dislocation, no soft tissue swelling, no fractures, other - Osteoporosis Impression: Other - Osteoporosis Electronically Signed by: Torrey Lane MD Last Vital Signs Date Time Temp Pulse Resp B/P (MAP) Pulse Ox O2 Delivery O2 Flow Rate FiO2 07/11/20 03:10 98.8 94 18 168/82 (110) 93 Room Air Status: improved Disposition: SNF Condition: Stable Additional Instructions: Follow-up with In 7 days. Return if symptoms worsen. Torrey Lane MD Jul 11, 2020 03:19
[2020-07-11 03:26] VITALS: BP 152/83
[2020-07-11] MEDS ORDERED: Acetaminophen 500mg (ES) tab ORAL ONE (03:30)
--- NOTE | 2020-07-11 03:30 | NUR ---
ED Nurse Note: imaging completed at bedside.
--- NOTE | 2020-07-11 04:20 | NUR ---
ED Nurse Note: Spoke with xander Lares of [facility] sintia Chaudhary. Notified of patient's discharge back to SNF. Transportation ETA [id number] with [facility]
[2020-07-11 05:00] VITALS: BP 149/81
[2020-07-11 05:45] VITALS: BP 144/84
--- NOTE | 2020-07-11 05:45 | NUR ---
ED Nurse Note: report given to [id number]. Patient is cleared to be discharged per ERMD, pt is aox4, on room air, with stable vital signs. pt was given dc and prescription instructions, pt was able to verbalize understanding, pt id band removed. patient left with ems will all belongings.
--- NOTE | 2020-07-11 14:51 | Diagnostic Imaging Report ---
Indication: Pain, trauma Technique: 3 views left foot Comparison: none Findings: Exam is severely limited. Severe osteoporosis limits evaluation, and severe hammertoe deformity of the second through fifth digits precludes adequate evaluation of the great toe. No definite acute fractures. No dislocations. Joint spaces are grossly preserved. Impression: Very limited exam, as described No gross acute bony trauma
--- NOTE | 2020-07-11 14:52 | Diagnostic Imaging Report ---
Indication: Pain, trauma Technique: 3 views right foot Comparison: none Findings: Exam is limited, due to severe osteoporotic change limiting visualization of the bones, and severe hammertoe deformity of the second through fifth digits essentially precluding adequate evaluation of the toes. There is considerable hallux valgus. No definite acute fractures. No dislocations. The joint spaces are preserved. Impression: Very limited exam, as described No gross acute bony trauma
== END 2020-07-11 05:45 ==
LOC: EDBD 03:09 → EMR 03:25
DX: M25.572 Pain in left ankle and joints of left foot (principal); M25.571 Pain in right ankle and joints of right foot; Z88.6 Allergy status to analgesic agent; I10 Essential (primary) hypertension; Z86.73 Personal history of transient ischemic attack (TIA), and cerebral infarction without residual deficits; Z88.8 Allergy status to other drugs, medicaments and biological substances; Z99.3 Dependence on wheelchair; M81.0 Age-related osteoporosis without current pathological fracture
CPT/HCPCS: 99284